=== PATIENT | male | born 1940 | race Hispanic/Latino ===

== ENCOUNTER 2017-06-30 21:46 | Inpatient (IN) | payer OTHER ==
[~2017-06-30] VITALS: Ht 167.6 cm; Wt 81.4 kg
[~2017-06-30 21:46] MED LIST: ALLO100T PO; DILT120T PO; FINA5TAB41 PO; FURO20TA6 PO; GLIP5TAB11 PO; INDO50 PO; LISI40TA4 PO; OMEP20CA4 PO; SIMV40TA59 PO; SPIR25TA6 PO; TERA5CAP4 PO
[2017-06-30 23:27] LABS: BASOPHILS % (AUTO) 0.2 % (0.0-5.0); EOSINOPHILS % (AUTO) 0.2 % (0.0-8.0); LYMPHOCYTES % (AUTO) 3.9 % (21.0-51.0); MEAN CORPUSCULAR HEMOGLOBIN 29.9 pg (27.0-33.0); MEAN CORPUSCULAR HGB CONC 33.9 g/dL (32.0-36.0); MEAN CORPUSCULAR VOLUME 88.1 fL (79-99); NEUTROPHILS % (AUTO) 88.7 % (40.0-77.0); PLATELET COUNT (AUTO) 251 K/uL (130-400); RED BLOOD CELL COUNT(AUTO) 4.54 MIL/uL (4.50-6.20); RED CELL DISTRIBUTION WIDTH 14.4 % (11.0-15.5); WHITE BLOOD COUNT (AUTO) 16.6 K/uL (4.8-10.8)
[2017-06-30] MEDS ORDERED: SODIUM CHLORIDE 0.9% 1000ML 1,000 ML IV ONE (23:29)
[2017-06-30] MEDS ORDERED: ACETAMINOPHEN EXTRA STRENGTH 500 MG TABLET ONE (23:30)
[2017-06-30] MEDS ORDERED: CEFTRIAXONE SODIUM 2 GM VIAL ONE (23:30)
[2017-07-01 00:30] LABS: CREATININE 1.2 mg/dL (0.5-1.5); POTASSIUM 3.6 mmol/L (3.5-5.1)
[2017-07-01 00:37] LABS: ALBUMIN 2.5 g/dL (3.5-5.0); BILIRUBIN,TOTAL 0.8 mg/dL (0.2-1.0); TOTAL PROTEIN, SERUM 7.2 g/dL (6.0-8.3)
[2017-07-01] MEDS ORDERED: VANCOMYCIN 1GM+NS 250ML 250 ML IV ONE (02:49)
[2017-07-01] MEDS ORDERED: HYDROCODONE/ACETAMINOPHEN 5/325 MG TAB ONE ×2 (02:49→12:17)
[2017-07-01] MEDS ORDERED: DEXTROSE 50%-WATER 50 ML DISP.SYRIN IV PRN (05:00)
[2017-07-01] MEDS: VANCOMYCIN 1GM+NS 250ML 250 ML IV SCH ×2 (05:00→17:00)
[2017-07-01] MEDS ORDERED: GLUCAGON 1MG KIT 1 MG ML IM PRN (05:00)
[2017-07-01] MEDS ORDERED: VANCOMYCIN PROTOCOL PER PHARMACY IV SCH (05:00)
[2017-07-01] MEDS: INSULIN R PO SS1 SQ SCH ×4 (07:30→21:00)
[2017-07-01] MEDS ORDERED: CEFAZOLIN SODIUM 1 GM VIAL ONE (12:16)
[2017-07-01] MEDS ORDERED: COMPOUND IV REFRIGERATED 1 EACH IVSOLN MISC PRN (15:30)
[2017-07-01 16:40] VITALS: BP 154/85
[2017-07-01] MEDS ORDERED: LOSA25TA21 PO (17:28)
[2017-07-01] MEDS ORDERED: POTA-9 PO (17:28)
[2017-07-01] MEDS: VANCOMYCIN 750MG + NS 250 ML IV SCH ×2 (17:48)
[2017-07-01 20:00] VITALS: BP 146/79
[2017-07-01] MEDS: HYDROCODONE/ACETAMINOPHEN 5/325 MG TAB PO PRN (23:14)
[2017-07-02] VITALS (7 sets, daily range): BP systolic 145–180; BP diastolic 70–86
[2017-07-02] MEDS: INSULIN R PO SS1 SQ SCH ×4 (05:25→21:00)
[2017-07-02 07:14] LABS: HEMATOCRIT 35.1 % (42-54); MEAN CORPUSCULAR HEMOGLOBIN 29.7 pg (27.0-33.0); MEAN CORPUSCULAR HGB CONC 34.1 g/dL (32.0-36.0); MEAN CORPUSCULAR VOLUME 87.3 fL (79-99); PLATELET COUNT (AUTO) 211 K/uL (130-400); RED BLOOD CELL COUNT(AUTO) 4.03 MIL/uL (4.50-6.20); RED CELL DISTRIBUTION WIDTH 14.4 % (11.0-15.5); WHITE BLOOD COUNT (AUTO) 13.6 K/uL (4.8-10.8)
[2017-07-02 07:25] LABS: POTASSIUM 3.4 mmol/L (3.5-5.1)
[2017-07-02] MEDS ORDERED: VANCOMYCIN 750MG + NS 250 ML IV SCH ×2 (07:33)
[2017-07-02] MEDS: HYDROCODONE/ACETAMINOPHEN 5/325 MG TAB PO PRN (12:03)
[2017-07-02] MEDS: VANCOMYCIN 750MG + NS 250 ML IV SCH ×2 (19:57)
[2017-07-02] MEDS ORDERED: INDOMETHACIN 25 MG CAP PO PRN (22:30)
[2017-07-02] MEDS: CEFAZOLIN SODIUM 1 GM VIAL IVP SCH (22:47)
[2017-07-03 04:00] VITALS: BP 153/83
[2017-07-03 05:50] LABS: BASOPHILS % (AUTO) 0.2 % (0.0-5.0); EOSINOPHILS % (AUTO) 1.6 % (0.0-8.0); HEMATOCRIT 34.8 % (42-54); LYMPHOCYTES % (AUTO) 6.8 % (21.0-51.0); MEAN CORPUSCULAR HEMOGLOBIN 31.1 pg (27.0-33.0); MEAN CORPUSCULAR HGB CONC 35.5 g/dL (32.0-36.0); MEAN CORPUSCULAR VOLUME 87.5 fL (79-99); MONOCYTES % (AUTO) 5.7 % (3.0-13.0); NEUTROPHILS % (AUTO) 85.7 % (40.0-77.0); PLATELET COUNT (AUTO) 249 K/uL (130-400); RED BLOOD CELL COUNT(AUTO) 3.97 MIL/uL (4.50-6.20); RED CELL DISTRIBUTION WIDTH 14.4 % (11.0-15.5); WHITE BLOOD COUNT (AUTO) 13.1 K/uL (4.8-10.8)
[2017-07-03 06:01] LABS: CREATININE 0.9 mg/dL (0.5-1.5); POTASSIUM 3.2 mmol/L (3.5-5.1)
[2017-07-03] MEDS: INSULIN R PO SS1 SQ SCH ×4 (06:04→21:00)
[2017-07-03] MEDS: CEFAZOLIN SODIUM 1 GM VIAL IVP SCH ×3 (06:23→22:25)
[2017-07-03 08:36] VITALS: BP 153/65
[2017-07-03] MEDS: VANCOMYCIN 1GM+NS 250ML 250 ML IV SCH ×2 (09:26→22:25)
[2017-07-03] MEDS: FINASTERIDE 5 MG TABLET PO SCH (09:27)
[2017-07-03] MEDS: DILTIAZEM HCL 120 MG CAP.SR.24H PO SCH (09:27)
[2017-07-03] MEDS: POTASSIUM CHLORIDE 10 MEQ/TAB.SA PO SCH (09:27)
[2017-07-03] MEDS: ALLOPURINOL 100 MG TABLET PO SCH (09:28)
[2017-07-03] MEDS: FUROSEMIDE 20 MG TABLET PO SCH (09:28)
[2017-07-03] MEDS: LOSARTAN 50 MG TABLET PO SCH (09:28)
[2017-07-03] MEDS: SPIRONOLACTONE 25 MG TAB PO SCH (09:28)
[2017-07-03] MEDS: PANTOPRAZOLE SODIUM 40 MG TABLET.DR PO SCH (09:28)
[2017-07-03 11:38] VITALS: BP 119/82
[2017-07-03] MEDS ORDERED: LOPERAMIDE HCL 2 MG CAP PO PRN (14:45)
[2017-07-03 15:50] VITALS: BP 157/93
[2017-07-03 20:00] VITALS: BP 152/86
[2017-07-03] MEDS: TERAZOSIN HCL 5 MG CAPSULE PO SCH (22:25)
[2017-07-04] VITALS (7 sets, daily range): BP systolic 119–149; BP diastolic 72–95
[2017-07-04] MEDS: CEFAZOLIN SODIUM 1 GM VIAL IVP SCH ×3 (06:02→22:43)
[2017-07-04] MEDS: INSULIN R PO SS1 SQ SCH ×4 (06:49→21:00)
[2017-07-04] MEDS: VANCOMYCIN 1GM+NS 250ML 250 ML IV SCH ×2 (09:20→22:42)
[2017-07-04] MEDS: FUROSEMIDE 20 MG TABLET PO SCH (09:21)
[2017-07-04] MEDS: SPIRONOLACTONE 25 MG TAB PO SCH (09:21)
[2017-07-04] MEDS: ALLOPURINOL 100 MG TABLET PO SCH (09:21)
[2017-07-04] MEDS: POTASSIUM CHLORIDE 10 MEQ/TAB.SA PO SCH (09:22)
[2017-07-04] MEDS: FINASTERIDE 5 MG TABLET PO SCH (09:22)
[2017-07-04] MEDS: LOSARTAN 50 MG TABLET PO SCH (09:22)
[2017-07-04] MEDS: DILTIAZEM HCL 120 MG CAP.SR.24H PO SCH (09:22)
[2017-07-04] MEDS: PANTOPRAZOLE SODIUM 40 MG TABLET.DR PO SCH (09:22)
[2017-07-04] MEDS: ENOXAPARIN SODIUM 30 MG/0.3 ML SQ SCH (09:25)
[2017-07-04] MEDS ORDERED: DOXY100C2 PO (14:03)
[2017-07-04] MEDS ORDERED: CEPH500C2 PO (14:03)
[2017-07-04] MEDS: TERAZOSIN HCL 5 MG CAPSULE PO SCH (22:42)
[2017-07-05 04:00] VITALS: BP 159/88
[2017-07-05] MEDS: CEFAZOLIN SODIUM 1 GM VIAL IVP SCH ×3 (06:15→22:00)
[2017-07-05] MEDS: INSULIN R PO SS1 SQ SCH ×4 (06:41→21:00)
[2017-07-05 08:17] VITALS: BP 158/80
[2017-07-05] MEDS: VANCOMYCIN 1GM+NS 250ML 250 ML IV SCH ×2 (08:38→20:37)
[2017-07-05] MEDS: DILTIAZEM HCL 120 MG CAP.SR.24H PO SCH (08:40)
[2017-07-05] MEDS: LOSARTAN 50 MG TABLET PO SCH (08:40)
[2017-07-05] MEDS: FINASTERIDE 5 MG TABLET PO SCH (08:40)
[2017-07-05] MEDS: FUROSEMIDE 20 MG TABLET PO SCH (08:40)
[2017-07-05] MEDS: SPIRONOLACTONE 25 MG TAB PO SCH (08:40)
[2017-07-05] MEDS: PANTOPRAZOLE SODIUM 40 MG TABLET.DR PO SCH (08:40)
[2017-07-05] MEDS: ENOXAPARIN SODIUM 30 MG/0.3 ML SQ SCH (08:41)
[2017-07-05 12:09] VITALS: BP 148/86
[2017-07-05] MEDS: ALLOPURINOL 100 MG TABLET PO SCH (12:22)
[2017-07-05] MEDS: POTASSIUM CHLORIDE 10 MEQ/TAB.SA PO SCH (12:23)
[2017-07-05] MEDS: HYDROCODONE/ACETAMINOPHEN 5/325 MG TAB PO PRN ×2 (16:06→16:17)
[2017-07-05 17:02] VITALS: BP 134/78
[2017-07-05 19:50] VITALS: BP 141/74
[2017-07-05] MEDS: TERAZOSIN HCL 5 MG CAPSULE PO SCH (20:36)
[2017-07-05 23:02] VITALS: BP 131/79
[2017-07-06 03:55] VITALS: BP 158/74
[2017-07-06] MEDS: CEFAZOLIN SODIUM 1 GM VIAL IVP SCH ×3 (05:56→22:44)
[2017-07-06 06:08] LABS: CREATININE 0.9 mg/dL (0.5-1.5); POTASSIUM 3.3 mmol/L (3.5-5.1)
[2017-07-06] MEDS: INSULIN R PO SS1 SQ SCH ×4 (06:54→21:00)
[2017-07-06 08:00] VITALS: BP 159/80
[2017-07-06] MEDS: ALLOPURINOL 100 MG TABLET PO SCH (10:10)
[2017-07-06] MEDS: VANCOMYCIN 1GM+NS 250ML 250 ML IV SCH ×2 (10:10→22:43)
[2017-07-06] MEDS: SPIRONOLACTONE 25 MG TAB PO SCH (10:11)
[2017-07-06] MEDS: DILTIAZEM HCL 120 MG CAP.SR.24H PO SCH (10:11)
[2017-07-06] MEDS: FUROSEMIDE 20 MG TABLET PO SCH (10:11)
[2017-07-06] MEDS: LOSARTAN 50 MG TABLET PO SCH (10:11)
[2017-07-06] MEDS: POTASSIUM CHLORIDE 10 MEQ/TAB.SA PO SCH (10:11)
[2017-07-06] MEDS: FINASTERIDE 5 MG TABLET PO SCH (10:11)
[2017-07-06] MEDS: PANTOPRAZOLE SODIUM 40 MG TABLET.DR PO SCH (10:11)
[2017-07-06] MEDS: ENOXAPARIN SODIUM 30 MG/0.3 ML SQ SCH (10:12)
[2017-07-06 11:30] VITALS: BP 161/85
[2017-07-06 15:57] VITALS: BP 145/85
[2017-07-06 19:50] VITALS: BP 130/87
[2017-07-06] MEDS: TERAZOSIN HCL 5 MG CAPSULE PO SCH (22:43)
[2017-07-06 23:45] VITALS: BP 147/75
[2017-07-07 03:50] VITALS: BP 164/79
[2017-07-07] MEDS: CEFAZOLIN SODIUM 1 GM VIAL IVP SCH ×3 (06:47→21:51)
[2017-07-07] MEDS: INSULIN R PO SS1 SQ SCH ×4 (06:48→20:56)
[2017-07-07 07:30] VITALS: BP 171/92
[2017-07-07] MEDS: ALLOPURINOL 100 MG TABLET PO SCH (10:14)
[2017-07-07] MEDS: FUROSEMIDE 20 MG TABLET PO SCH (10:14)
[2017-07-07] MEDS: SPIRONOLACTONE 25 MG TAB PO SCH (10:14)
[2017-07-07] MEDS: DILTIAZEM HCL 120 MG CAP.SR.24H PO SCH (10:15)
[2017-07-07] MEDS: LOSARTAN 50 MG TABLET PO SCH (10:15)
[2017-07-07] MEDS: PANTOPRAZOLE SODIUM 40 MG TABLET.DR PO SCH (10:16)
[2017-07-07] MEDS: FINASTERIDE 5 MG TABLET PO SCH (10:16)
[2017-07-07] MEDS: ENOXAPARIN SODIUM 30 MG/0.3 ML SQ SCH (10:17)
[2017-07-07] MEDS: POTASSIUM CHLORIDE 10 MEQ/TAB.SA PO SCH (10:28)
[2017-07-07 11:00] VITALS: BP 119/71
[2017-07-07] MEDS: VANCOMYCIN 1GM+NS 250ML 250 ML IV SCH ×2 (13:07→20:56)
[2017-07-07 16:00] VITALS: BP 128/71
[2017-07-07] MEDS ORDERED: LACTULOSE 20 GM/30 ML UDCUP PO PRN (18:00)
[2017-07-07] MEDS ORDERED: POTASSIUM CHLORIDE 10% ELIXIR 20 MEQ/15 ML UDCUP PO PRN (18:00)
[2017-07-07] MEDS ORDERED: LIDOCAINE HCL-MPF 1% 2ML VIAL IVP PRN (18:00)
[2017-07-07] MEDS ORDERED: POTASSIUM CHLORIDE 20MEQ/100ML 100 ML IV PRN (18:00)
[2017-07-07 19:37] VITALS: BP 121/78
[2017-07-07] MEDS: TERAZOSIN HCL 5 MG CAPSULE PO SCH (20:56)
[2017-07-07] MEDS: POTASSIUM CHLORIDE 20 MEQ ERTAB PO PRN (20:56)
[2017-07-07 23:42] VITALS: BP 143/74
[2017-07-08] VITALS (20 sets, daily range): BP systolic 132–165; BP diastolic 65–83
[2017-07-08] MEDS: POTASSIUM CHLORIDE 20 MEQ ERTAB PO PRN ×2 (02:07→04:11)
[2017-07-08 05:48] LABS: BASOPHILS % (AUTO) 0.5 % (0.0-5.0); EOSINOPHILS % (AUTO) 2.8 % (0.0-8.0); HEMATOCRIT 34.3 % (42-54); LYMPHOCYTES % (AUTO) 19.4 % (21.0-51.0); MEAN CORPUSCULAR HEMOGLOBIN 30.2 pg (27.0-33.0); MEAN CORPUSCULAR HGB CONC 34.5 g/dL (32.0-36.0); MEAN CORPUSCULAR VOLUME 87.6 fL (79-99); MONOCYTES % (AUTO) 6.1 % (3.0-13.0); NEUTROPHILS % (AUTO) 71.2 % (40.0-77.0); PLATELET COUNT (AUTO) 408 K/uL (130-400); RED BLOOD CELL COUNT(AUTO) 3.92 MIL/uL (4.50-6.20); RED CELL DISTRIBUTION WIDTH 14.3 % (11.0-15.5); WHITE BLOOD COUNT (AUTO) 10.5 K/uL (4.8-10.8)
[2017-07-08 05:56] LABS: CREATININE 0.9 mg/dL (0.5-1.5); POTASSIUM 3.7 mmol/L (3.5-5.1)
[2017-07-08] MEDS: CEFAZOLIN SODIUM 1 GM VIAL IVP SCH ×3 (05:56→21:57)
[2017-07-08] MEDS: INSULIN R PO SS1 SQ SCH ×3 (06:04→21:00)
[2017-07-08] MEDS: ENOXAPARIN SODIUM 30 MG/0.3 ML SQ SCH (09:00)
[2017-07-08] MEDS: LOSARTAN 50 MG TABLET PO SCH (09:11)
[2017-07-08] MEDS: ALLOPURINOL 100 MG TABLET PO SCH (09:12)
[2017-07-08] MEDS: PANTOPRAZOLE SODIUM 40 MG TABLET.DR PO SCH (09:12)
[2017-07-08] MEDS: SPIRONOLACTONE 25 MG TAB PO SCH (09:12)
[2017-07-08] MEDS: FUROSEMIDE 20 MG TABLET PO SCH (09:12)
[2017-07-08] MEDS: FINASTERIDE 5 MG TABLET PO SCH (09:16)
[2017-07-08] MEDS: POTASSIUM CHLORIDE 10 MEQ/TAB.SA PO SCH (09:16)
[2017-07-08] MEDS: DILTIAZEM HCL 120 MG CAP.SR.24H PO SCH (09:16)
[2017-07-08] MEDS: VANCOMYCIN 1GM+NS 250ML 250 ML IV SCH ×2 (09:26→21:11)
[2017-07-08] MEDS ORDERED: KETAMINE HCL 100 MG/ML 5ML VIAL IJ ONE (16:43)
[2017-07-08] MEDS ORDERED: PROPOFOL 10 MG/ML 20ML VIAL IV ONE (16:45)
[2017-07-08] MEDS ORDERED: FENTANYL CITRATE PF 50 MCG/1 ML 2ML VIAL ONE (16:45)
[2017-07-08] MEDS ORDERED: IPRATROPIUM/ALBUTEROL SULFATE 3 ML SOLUTION IH ONE (17:30)
[2017-07-08] MEDS: TERAZOSIN HCL 5 MG CAPSULE PO SCH (21:11)
[2017-07-09 04:00] VITALS: BP 141/59
[2017-07-09] MEDS: INSULIN R PO SS1 SQ SCH ×2 (05:41→11:30)
[2017-07-09] MEDS: CEFAZOLIN SODIUM 1 GM VIAL IVP SCH (05:59)
[2017-07-09 08:00] VITALS: BP 124/54
[2017-07-09] MEDS: DILTIAZEM HCL 120 MG CAP.SR.24H PO SCH (09:59)
[2017-07-09] MEDS: ENOXAPARIN SODIUM 30 MG/0.3 ML SQ SCH (09:59)
[2017-07-09] MEDS: LOSARTAN 50 MG TABLET PO SCH (10:00)
[2017-07-09] MEDS: SPIRONOLACTONE 25 MG TAB PO SCH (10:02)
[2017-07-09] MEDS: FUROSEMIDE 20 MG TABLET PO SCH (10:03)
[2017-07-09] MEDS: ALLOPURINOL 100 MG TABLET PO SCH (10:03)
[2017-07-09] MEDS: PANTOPRAZOLE SODIUM 40 MG TABLET.DR PO SCH (10:03)
[2017-07-09] MEDS: VANCOMYCIN 1GM+NS 250ML 250 ML IV SCH (10:03)
[2017-07-09] MEDS: POTASSIUM CHLORIDE 10 MEQ/TAB.SA PO SCH (10:03)
[2017-07-09] MEDS: FINASTERIDE 5 MG TABLET PO SCH (10:03)
[2017-07-09 12:03] VITALS: BP 98/59
== END 2017-07-09 17:00 | DRG 602 ==
LOC: EDH 21:46 → OBSVTOIN 07-01 01:10 → EDHIP 07-01 01:10 → 4CH 07-01 16:30
PROVIDERS: ADMIT Internal Medicine; ATTEND Internal Medicine
PROC: 0X9F0ZZ Drainage of Left Lower Arm, Open Approach (ICD-10-PCS; principal; 2017-07-08 16:45)
DX: L03.114 Cellulitis of left upper limb (principal); R53.2 Functional quadriplegia; E11.22 Type 2 diabetes mellitus with diabetic chronic kidney disease; G20 Parkinson's disease; E66.01 Morbid (severe) obesity due to excess calories; L02.414 Cutaneous abscess of left upper limb; F03.90 Unspecified dementia, unspecified severity, without behavioral disturbance, psychotic disturbance, mood disturbance, and anxiety; F32.9 Major depressive disorder, single episode, unspecified; M19.90 Unspecified osteoarthritis, unspecified site; E78.5 Hyperlipidemia, unspecified; E87.6 Hypokalemia; G89.4 Chronic pain syndrome; H54.8 Legal blindness, as defined in USA; I12.9 Hypertensive chronic kidney disease with stage 1 through stage 4 chronic kidney disease, or unspecified chronic kidney disease; L02.93 Carbuncle, unspecified; M1A.9XX0 Chronic gout, unspecified, without tophus (tophi); N18.9 Chronic kidney disease, unspecified; R62.7 Adult failure to thrive; Z72.0 Tobacco use; Z74.01 Bed confinement status; Z85.46 Personal history of malignant neoplasm of prostate; Z86.73 Personal history of transient ischemic attack (TIA), and cerebral infarction without residual deficits; Z99.3 Dependence on wheelchair; Z68.29 Body mass index [BMI] 29.0-29.9, adult; Z71.89 Other specified counseling
CPT/HCPCS: 36415; 73070; 73090; 80048; 80053; 80202; 82948; 83605; 85025; 85027; 87040; 87070; 87076; 87077; 87186; 87205; 93971; 94640; 97039; A4218; J0690; J0696; J1650; J1815; J2704; J3010; J3370; J3490; J7030; J7120